=== PATIENT | female | born 1995 | race Two or more races ===

== ENCOUNTER 2019-05-26 12:07 | Emergency (ER) | payer OTHER ==
[~2019-05-26] VITALS: Ht 172.7 cm; Wt 87.5 kg
[2019-05-26 12:16] VITALS: Ht 172.7 cm; Wt 87.5 kg
[2019-05-26 16:06] VITALS: BP 120/74
== END 2019-05-26 16:06 | disposition home or self-care (01) ==
LOC: ED 12:07
DX: E11.39 Type 2 diabetes mellitus with other diabetic ophthalmic complication (principal); H20.9 Unspecified iridocyclitis